=== PATIENT | male | born 1990 | race American Indian/Alaskan Native ===

== ENCOUNTER 2021-03-12 00:37 | Emergency (ER) | payer SELFPAY ==
[2021-03-12 01:10] VITALS: BP 149/84
--- NOTE | 2021-03-12 02:34 | XRay Report ---
CHEST 1 VIEW INDICATION: Bradycardia. COMPARISON: None FINDINGS: SUPPORT DEVICES: None. HEART: Within normal limits. LUNGS/PLEURA: No acute air space or interstitial disease. ADDITIONAL FINDINGS: None. IMPRESSION: 1. No acute findings. Signer Name: Ethan Garcia MD Signed: 03/12/2021 2:29 AM Workstation Name: [id number]
[2021-03-12 02:38] LABS: Hematocrit 47.2 % (35.5-45.6); Hemoglobin 15.4 gm/dl (11.8-15.2); Mean Corpuscular HGB Conc 33 % (32-34); Mean Corpuscular Volume 89 fl (84-94); Platelet Count 319 K/mm3 (140-440); Red Blood Count 5.33 M/mm3 (3.65-5.03); Red Cell Distribution Width 13.5 % (13.2-15.2)
--- NOTE | 2021-03-12 02:55 | Emergency Department Report ---
ED General Adult HPI - General Chief complaint: Arrhythmia/Palpitations Stated complaint: LOW HEARTRATE Source: patient Mode of arrival: Ambulatory Limitations: No Limitations - History of Present Illness Initial comments: Patient is a 30-year-old -Faroese male with no past medical history except chronic urticaria who presented to the ED with intermittent persistent bradycardia of between 45 to 50 bpm and near syncopal episodes on upright posture x1 for the last 5 days. Patient states that the symptoms have been persistent for over 1 year but of late become more persistent. Patient also states that he is active in sports, doing heavy lifting and cardio work-out activities regularly. Patient states that he has not been evaluated by any primary care physician or any specialist. Patient denies dizziness, syncope, chest pain, shortness of breath, headache, fever, diaphoresis, nausea and vomiting, neck pain, change in vision or ear pain. MD Complaint: Bradycardia, near syncope -: Gradual, month(s) (12) Location: head, chest Radiation: non-radiation Severity scale (0 -10): 0 Quality: dull Consistency: intermittent Improves with: rest Worsens with: movement Associated Symptoms: denies other symptoms, malaise, weakness. denies: confusion, chest pain, cough, diaphoresis, fever/chills, headaches, loss of a ppetite, nausea/vomiting, rash, seizure, shortness of breath, syncope Treatments Prior to Arrival: none - Related Data Allergies Allergy/AdvReac Type Severity Reaction Status Date / Time No Known Allergies Allergy Unverified 03/12/21 01:11 ED Review of Systems ROS: Stated complaint: LOW HEARTRATE Other details as noted in HPI Constitutional: malaise, weakness. denies: chills, fever Eyes: denies: eye pain, eye discharge, vision change ENT: denies: ear pain, throat pain, dental pain, congestion Respiratory: denies: cough, shortness of breath, wheezing Cardiovascular: syncope (near syncope), other (bradycardia). denies: chest pain, palpitations Endocrine: no symptoms reported Gastrointestinal: denies: abdominal pain, nausea, vomiting, diarrhea Genitourinary: denies: urgency, dysuria Musculoskeletal: denies: back pain, joint swelling, arthralgia Skin: denies: rash, lesions Neurological: weakness. denies: headache, paresthesias Psychiatric: anxiety. denies: depression Hematological/Lymphatic: denies: easy bleeding, easy bruising ED Physical Exam - General Limitations: No Limitations General appearance: alert, in no apparent distress - Head Head exam: Present: atraumatic, normocephalic, normal inspection - Eye Eye exam: Present: normal appearance, PERRL, EOMI Pupils: Present: normal accommodation - ENT ENT exam: Present: normal exam, normal orophraynx, mucous membranes moist, TM's normal bilaterally, normal external ear exam - Neck Neck exam: Present: normal inspection, full ROM - Respiratory Respiratory exam: Present: normal lung sounds bilaterally. Absent: respiratory distress, wheezes, rales, rhonchi, chest wall tenderness, accessory muscle use - Cardiovascular Cardiovascular Exam: Present: normal rhythm, bradycardia, normal heart sounds. Absent: irregular rhythm, systolic murmur, diastolic murmur, rubs, gallop - GI/Abdominal GI/Abdominal exam: Present: soft, normal bowel sounds. Absent: tenderness, guarding, rebound, hyperactive bowel sounds, hypoactive bowel sounds, organomegaly, mass - Extremities Exam Extremities exam: Present: normal inspection, full ROM, normal capillary refill. Absent: tenderness, pedal edema, joint swelling - Back Exam Back exam: Present: normal inspection, full ROM. Absent: tenderness, CVA tenderness (R), CVA tenderness (L), muscle spasm, paraspinal tenderness, vertebral tenderness - Neurological Exam Neurological exam: Present: alert, oriented X3, CN II-XII intact, normal gait, reflexes normal - Psychiatric Psychiatric exam: Present: normal affect, normal mood, anxious - Skin Skin exam: Present: warm, dry, intact, normal color. Absent: rash ED Course Vital Signs 03/12/21 01:06 Temperature 98.3 F Pulse Rate 43 L Respiratory 16 Rate Blood Pressure 149/84 [Right] O2 Sat by Pulse 99 Oximetry ED Medical Decision Making - Lab Data Result diagrams: 03/12/21 02:14 03/12/21 02:14 - EKG Data EKG shows normal: sinus rhythm Rate: bradycardia - EKG Data Interpretation: normal EKG - Radiology Data Radiology results: report reviewed, image reviewed [facility] [address] [place] [address] XRay Report Signed Patient: JARVIS MALONEY MR#: [id number] 2 : 1990 Acct:[id number] Age/Sex: 30 / M ADM Date: 03/12/21 Loc: ED Attending Dr: Ordering Physician: NABEEL ALAMO Date of Service: 03/12/21 Procedure(s): XR chest 1V ap Accession Number(s): [id number] cc: NABEEL ALAMO Fluoro Time In Minutes: CHEST 1 VIEW INDICATION: Bradycardia. COMPARISON: None FINDINGS: SUPPORT DEVICES: None. HEART: Within normal limits. LUNGS/PLEURA: No acute air space or interstitial disease. ADDITIONAL FINDINGS: None. IMPRESSION: 1. No acute findings. Signer Name: Ethan Garcia MD Signed: 03/12/2021 2:29 AM Workstation Name: [id number] Transcribed By: MELVI Dictated By: Ethan Garcia MD Electronically Authenticated By: Ethan Garcia MD Signed Date/Time: 03/12/21228 DD/ 8 TD/TT: - Medical Decision Making This is a 30-year-old -Faroese male with no past medical history except chronic urticaria who presented to the ED with intermittent persistent bradycardia of between 45 to 50 bpm and near syncopal episodes on upright posture x1 for the last 5 days. Patient states that the symptoms have been persistent for over 1 year but of late become more persistent. Patient also states that he is active in sports, doing heavy lifting and cardio work-out activities regularly. Patient states that he has not been evaluated by any primary care physician or any specialist. In the ED, patient is alert oriented x3 and is not in distress but anxious and bradycardic in triage. Patient is an active athlete who as expected has bradycardic heart rate. The EKG shows sinus bradycardia and no ST or T wave abnormalities. Lab test results were reviewed and are all nonactionable. Patient's heart score is 0 and patient is PERC negative per Wells criteria. Chest x-ray showed no acute cardiopulmonary abnormalities or pneumonitis. On reevaluation, patient's vital signs are stable, and patient was discharged home and given referral to stack attendant on- call Dr. Pisano for further evaluation of his chronic baseline bradycardia. Patient was therefore advised to contact Dr. Pisano's office first in the morning on Saturday, March 13, 2021 to schedule a follow-up appointment. Patient was otherwise advised return to the ED immediately if symptoms get worse. - Differential Diagnosis dehydration; ACS; PE; Pneumonia; Anxiety; syncope; Critical care attestation.: If time is entered above; I have spent that time in minutes in the direct care of this critically ill patient, excluding procedure time. ED Disposition Clinical Impression: Bradycardia with 41-50 beats per minute Disposition: HOME / SELF CARE / HOMELESS Is pt being admited?: No Does the pt Need Aspirin: No Condition: Stable Instructions: Bradycardia, Adult Additional Instructions: All lab test results were reviewed and are all nonactionable. Chest x-ray showed no acute cardiopulmonary abnormalities or pneumonitis. Your EKG also shows sinus bradycardia which is chronic and baseline. Therefore follow-up with your stack attendant Dr. Pisano as advised. Contact Dr. Pisano's office first in the morning on Saturday, March 13, 2021 to schedule appointment follow-up. Return to the ED immediately if symptoms get worse. Referrals: MARYJO PISANO MD [Staff Physician] - 3-5 Days [facility] [Provider Group] - 3-5 Days Time of Disposition: 03:40 Print Language: LATVIAN
[2021-03-12 02:56] LABS: Alanine Aminotransferase 12 units/L (7-56); Albumin 4.1 g/dL (3.9-5); BUN/Creatinine Ratio 17; Blood Urea Nitrogen 15 mg/dL (9-20); Calcium 8.7 mg/dL (8.4-10.2); Hemolysis Index 10
[2021-03-12 04:40] LABS: Basophils % (Manual) 0 % (0.0-1.8); Eosinophils % (Manual) 0 % (0.0-4.3); Total Cells Counted 100
[2021-03-12 04:41] LABS: Platelet Estimate Consistent w Auto; RBC Morphology Normal
--- NOTE | 2021-03-15 08:39 | Electrocardiograph Report ---
[facility] Test Date: 2021-03-12 Test Time: 04:09:40 Pat Name: JARVIS MALONEY Department: Room: Gender: M Can Maker: MEGA : 1990 Requested By: ARNALDO URBINA Order Number: [id number] Reading MD: Geena Cabrera Measurements Intervals [place] Rate: 65 P: 72 ND: 287 QRS: 108 QRSD: 185 T: 84 QT: 480 QTc: 500 Interpretive Statements Sinus rhythm VENTRICULAR BIGEMINY No previous ECG available for comparison Electronically Signed On 03-15-2021 8:38:24 EST by Geena Cabrera
== END 2021-03-12 04:30 | disposition home or self-care (01) ==
LOC: ED 00:37
DX: R00.1 Bradycardia, unspecified (principal); R55 Syncope and collapse
CPT/HCPCS: 36415; 71045; 80053; 84484; 85007; 85025; 93005; 99283